=== PATIENT | male | born 1995 | race Caucasian/White ===

== ENCOUNTER 2018-08-10 17:26 | Inpatient (IN) | payer BC ==
[~2018-08-10 17:26] MED LIST: Ropivacaine 0.5% HCl/PF (150 MG/30 ML VIAL) ONE
--- NOTE | 2018-08-10 19:24 | RAD ---
LEFT FOREARM THREE VIEWS: 08/10/18 HISTORY: Fall on obstacle course. There are slightly obliquely oriented mid shaft radius and ulnar fractures present. Both fractures ar e displaced by approximately a shaft width. IMPRESSION: Mid shaft radial and ulnar fractures. POS: PAU
[2018-08-10] MEDS ORDERED: Fentanyl 100 MCG/2 ML VIAL ONE (19:55)
[2018-08-10] MEDS ORDERED: diphenhydrAMINE 50 MG/ML VIAL IVP SCH (21:00)
[2018-08-10] MEDS ORDERED: Dextrose 50% Abboject 50 ML SYRINGE SLOW IVP PRN (22:02)
[2018-08-10] MEDS ORDERED: Ondansetron HCl/PF 4 MG/2 ML Vial IVP PRN (22:02)
[2018-08-10] MEDS ORDERED: Dextrose 5% in Water 1,000 ML IV PRN (22:02)
[2018-08-10] MEDS ORDERED: Ondansetron ODT 4 MG TAB PO PRN (22:02)
--- NOTE | 2018-08-10 22:15 | HP ---
DATE OF ADMISSION: 08/10/2018 REQUESTING PHYSICIAN: Yoan Mcbride M.D. ATTENDING SURGEON: Dr. Betts. CONSULTATIONS: Orthopedics, Dr. Mahoney. HISTORY OF PRESENT ILLNESS: The patient is a 23-year-old man who was doing when he j umped over a log, landed on his left outstretched arm felt a sudden pop and noticed a deformity to hi s left forearm. The patient was brought by POV to the emergency department where he underwent evalua tion and examination and was noted to have a both bone forearm fracture. The patient denied loss of consciousness or striking his head, any neck pain at which time we were asked to evaluate the patient for admission and obtain orthopedic consultation. ALLERGIES: None. CURRENT MEDICATIONS: None. PAST MEDICAL HISTORY: None. PAST SURGICAL HISTORY: None. SOCIAL HISTORY: The patient is at [employer], student in the . He denies tobacco or drug use an d drinks 5-7 beers per week. REVIEW OF SYSTEMS: 10 point review of systems negative, unless otherwise stated. PHYSICAL EXAMINATION: VITAL SIGNS: Blood pressure 145/82, heart rate 80, respirations 16, oxygen saturation 98% on room ai r, temperature is 98.5. GENERAL: The patient is resting comfortably in bed. He is awake, alert, and oriented x3. [place] c stuart scale is 15. HEENT: Head is normocephalic, atraumatic. Eyes: Extraocular motion intact. PERRLA bilaterally. E ars are atraumatic without discharge. Nose is atraumatic with discharge. Oropharynx is clear. NECK: Nontender. Trachea is midline. No JVD. CHEST: Clear to auscultation with good inspiratory and expiratory effort. HEART: Regular rate and rhythm. ABDOMEN: Soft, flat, nontender with active bowel sounds. EXTREMITIES: Neurovascularly intact x4. Left upper extremity is in a sugar tong splint. Capillary refill is also less than 3 seconds. BACK: Nontender and atraumatic. LABORATORY DATA: There are no labs to review. RADIOGRAPHS: Views of the left forearm show a midshaft radius and ulnar fracture. ASSESSMENT AND PLAN: 1. Status post fall. 2. Left midshaft radial and ulnar fracture. 3. Acute pain secondary to above. PLAN: Will be to admit the patient to the surgical floor. He will be n.p.o. after midnight. He jarett l have IV pain control, pulmonary toilet, gastritis, and mechanical VTE prophylaxis. The plan per di scussion with Orthopedics is for him to undergo ORIF tomorrow. The evaluation, examination, laborato ry and radiographic findings will be discussed with Dr. Betts after this dictation.
[2018-08-10] MEDS ORDERED: Morphine 4 MG/ML VIAL SLOW IVP PRN (22:19)
[2018-08-10 22:52] VITALS: BMI 25.8
[2018-08-11] MEDS: Ketorolac Tromethamine 30 MG/ML VIAL IVP SCH ×2 (06:03)
[2018-08-11] MEDS: Acetaminophen 1,000 MG in Premix Bag 1 BAG IVPB SCH ×3 (06:03→12:33)
[2018-08-11] MEDS: Sodium Chloride 0.9% 1,000 ML IV SCH ×3 (08:30→16:46)
[2018-08-11] MEDS ORDERED: Famotidine 20 MG TAB PO SCH (09:00)
[2018-08-11] MEDS ORDERED: CEFAZOLIN/Water 2 GM/20 ML SYRINGE ONE (10:39)
[2018-08-11] MEDS ORDERED: Fentanyl 100 MCG/2 ML VIAL ONE (10:51)
[2018-08-11] MEDS ORDERED: Midazolam HCl 2 mg/2 ml Vial ONE (10:51)
[2018-08-11] MEDS ORDERED: traMADol HCl 50 MG TAB PO PRN ×2 (11:16)
[2018-08-11] MEDS ORDERED: Promethazine HCl 25 MG/ML VIAL IM PRN (11:16)
[2018-08-11] MEDS ORDERED: Ketorolac Tromethamine 30 MG/ML VIAL IVP PRN (11:16)
[2018-08-11] MEDS ORDERED: Zolpidem Tartrate 5 MG TAB PO PRN (11:16)
[2018-08-11] MEDS ORDERED: Ondansetron HCl/PF 4 MG/2 ML Vial IVP PRN ×2 (11:16→13:30)
[2018-08-11] MEDS ORDERED: HYDROcodone/Acetaminophen 10/325 mg Tablet PO PRN ×2 (11:16)
[2018-08-11] MEDS ORDERED: Ropivacaine 0.2% 550 ML 550 ML NERVE BLCK SCH (11:16)
[2018-08-11] MEDS ORDERED: Fentanyl 100 MCG/2 ML VIAL IV PRN (11:17)
[2018-08-11] MEDS ORDERED: Ondansetron HCl/PF 4 MG/2 ML Vial ONE (11:34)
[2018-08-11] MEDS ORDERED: PROPOFOL 200 MG/20 ML VIAL ONE (11:34)
[2018-08-11] MEDS ORDERED: Dexamethasone 20 MG/5 ML VIAL ONE (11:34)
[2018-08-11] MEDS ORDERED: Neomycin-Polymyxin 1 ML AMP ONE (12:08)
[2018-08-11] MEDS ORDERED: Acetaminophen/Codeine 30-300mg Tablet PO PRN (13:30)
--- NOTE | 2018-08-11 14:03 | RAD ---
INTRAOPERATIVE FLUOROSCOPIC IMAGING LEFT FOREARM: Date: 08/11/18 INDICATION: Fracture fixation related to fall and injury. FINDINGS: There is metallic side plate and screw fixation involving the mid shaft of the radius and ulna with i mproved anatomic alignment on the provided fluoroscopic views. IMPRESSION: Intraoperative imaging for fracture fixation of the radial and ulnar diaphyses. POS: PAU
--- NOTE | 2018-08-11 14:06 | DIS ---
DATE OF ADMISSION: 08/10/2018 DATE OF DISCHARGE: 08/11/2018 HISTORY OF PRESENT ILLNESS: Please see admission history and physical. HOSPITAL COURSE: The patient was initially evaluated yesterday in the emergency room, and found to h ave a displaced midshaft fracture, left radius and ulna. He was admitted for pain control, and the , the patient was given perioperative IV antibiotics, taken to the operating room, and un ilda general anesthetic, underwent ORIF of the left midshaft fractures of the radius and ulna. The pa tient was placed in a volar splint afterwards along with the arm sling. He had a supraclavicular blo ck performed by Anesthesia, which gave him good pain relief and the patient demonstrated that he was able to get up out of bed and ambulate. He was able to be safely discharged on the day of surgery. DISCHARGE DIAGNOSES: Displaced midshaft fracture, left radius and ulna. DISCHARGE MEDICATIONS: Tylenol #4 one every 4-6 hours as needed for pain, #40 with 1 refill. The pa tient may change the dressing in the left forearm daily. He should wear the splint to protect the fo rearm. He has an arm sling as well. Follow up in my office in 9 days.
--- NOTE | 2018-08-11 15:38 | OP ---
DATE OF OPERATION: 08/11/2018 PREOPERATIVE DIAGNOSIS: Displaced midshaft fractures of the left radius and ulna. POSTOPERATIVE DIAGNOSIS: Displaced midshaft fractures of the left radius and ulna. PROCEDURE PERFORMED: Open reduction and internal fixation of midshaft fracture of the left radius an d ulna. SURGEON: Johnnie Mahoney M.D. ANESTHESIA: General. TECHNIQUE: The patient was given preoperative IV antibiotics, taken to the operating room, placed in supine position. Satisfactory general anesthesia was performed. The left upper extremity was steri gutierrez prepped and draped in usual fashion. After exsanguination, the tourniquet was raised to 250 mmH g. A longitudinal incision was made on the volar radial aspect of the mid forearm over the mid radius region. Blunt dissection was made down to the midshaft fracture of the radius. There was some comm inution of the fracture with a butterfly fragment on the dorsal aspect. Additional longitudinal inci renata was made over the mid shaft on the ulnar aspect of the ulna. Blunt dissection was made. Perios teal elevation was performed. The distal ulna was placed in good position and then internally fixed using a plate using 3.5 cortical screws proximally and distally and then additional 3.5 locking screws, one distally, and one proximally leaving the middle hole opened. This provided good reducti on, good stability of the ulna and this was verified with the C-arm with fluoroscopy. The radius was then held, reduced in place and a Synthes locking plate was used. A 3.5 cortical screw was placed p roximally and one was placed distally and then locking screws were placed proximally and distally and this provided excellent fixation for the fracture. After it was verified that the fractures were in good alignment and had good stability, both wounds were then irrigated with antibiotic solution. Th ey were closed using 2-0 and #1 Vicryl for the deeper tissue and skin closed with 3-0 Rapide. Steril e dressing was applied. The patient was placed in a volar splint. Tourniquet was released. The pat ient was awakened, extubated, and transferred to the recovery room in stable condition. ESTIMATED BLOOD LOSS: Minimal. COMPLICATIONS: None. DISCHARGE MEDICATIONS: Tylenol #4 one every 4-6 hours as needed for pain, #40 with 1 refill. Follow in my office in 9 days.
--- NOTE | 2018-08-11 15:39 | CON ---
DATE OF CONSULTATION: 08/10/2018 HISTORY OF PRESENT ILLNESS: The patient is a 23-year-old right-handed white male who is a part of [employer]. He was running an log landed on his left upper extremity, had immediate jatin n, deformity in the mid left forearm region. No neurologic complaints. The patient was brought to [facility] emergency room. X-rays revealed a displaced both mid shaft both bone forearm fracture of the left forearm. He was placed in a splint. CURRENT MEDICATIONS: None. PAST MEDICAL HISTORY: None. ALLERGIES: None. PAST SURGICAL HISTORY: None. PHYSICAL EXAMINATION: GENERAL: The patient's left upper extremity has a deformity. SKIN: Good condition. EXTREMITIES: Good peripheral pulses in the left upper extremity. NEUROLOGIC: Neurovascularly intact. I reviewed the x-rays which showed a displaced midshaft fractur e, left radius and ulna. IMPRESSION: Displaced midshaft fracture, left radius and ulna. PLAN: The patient will be admitted. Plan on taking him to surgery for open reduction internal fixat ion of the left radius and ulna tomorrow on 08/11/2018. Potential risks with the condition of surger y include but are not limited to infection, bleeding, pain, damage to blood vessels or nerves, nonuni on, malunion. The patient may require additional surgery. The patient's questions were answered and agreed to the procedure.
[2018-08-11 17:53] VITALS: BP 122/74; TEMP 98.2
== END 2018-08-11 17:45 | disposition home or self-care (01) | DRG 512 ==
LOC: ERS 17:26 → SURG A 20:05
PROVIDERS: ADMIT Specialist; ATTEND Specialist
PROC: 0PSJ04Z Reposition Left Radius with Internal Fixation Device, Open Approach (ICD-10-PCS; principal; 2018-08-11)
PROC: 0PSL04Z Reposition Left Ulna with Internal Fixation Device, Open Approach (ICD-10-PCS; 2018-08-11)
DX: S52.202A Unspecified fracture of shaft of left ulna, initial encounter for closed fracture (principal); S52.92XA Unspecified fracture of left forearm, initial encounter for closed fracture; W18.30XA Fall on same level, unspecified, initial encounter
CPT/HCPCS: 76001; 96374; 96375; A4306; C1713; J0131; J1100; J1200; J1885; J2250; J2270; J2405; J2704; J2795; J3010